=== PATIENT | female | born 1995 | race Caucasian/White ===

== ENCOUNTER 2017-05-28 00:41 | Emergency (ER) | payer OTHER ==
[~2017-05-28] VITALS: Ht 167.6 cm; Wt 55.8 kg
[2017-05-28 00:50] VITALS: BP 113/77
[2017-05-28] MEDS ORDERED: LIDOCAINE 1%, 20ML ONE (01:03)
[2017-05-28] MEDS ORDERED: LIDOCAINE 1%, 20ML INFIL ONE (01:30)
[2017-05-28] MEDS ORDERED: L.E.T SOLUTION TP ONE (01:30)
== END 2017-05-28 03:22 | disposition home or self-care (01) ==
LOC: ED 01:15
DX: S09.8XXA Other specified injuries of head, initial encounter (principal); W01.0XXA Fall on same level from slipping, tripping and stumbling without subsequent striking against object, initial encounter; Y93.89 Activity, other specified; Y92.89 Other specified places as the place of occurrence of the external cause; Y99.8 Other external cause status
CPT/HCPCS: 12052; 70450; 99284; J3490